=== PATIENT | male | born 1950 | race Caucasian/White ===

== ENCOUNTER 2025-04-23 11:06 | Emergency (ER) | payer OTHER, SELFPAY ==
[2025-04-23] VITALS (7 sets, daily range): BP systolic 113–151; BP diastolic 62–81; BMI 23.8
--- NOTE | 2025-04-23 11:36 | ED.GENMED ---
History of Present Illness
General
Chief Complaint: Chest Pain
Source: patient
Exam Limitations: none
Time Seen by Provider: 04/23/25 11:35
History of Present Illness
History of Present Illness:
74yoM with a history of pericarditis, hypertension, hyperlipidemia presenting for evaluation of chest pain. Patient woke up this morning around 8:30am and felt 'not right' in his chest. He reports a pressure throughout his chest that worsens with
deep breathing. Pain has been constant and feels similar to when he's been diagnosed with pericarditis in the past. He denies any cough, fever, shortness of breath, dizziness, diaphoresis, nausea, vomiting, leg swelling. He is a referee for
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 He denies any angina with exercise. He was last seen in the ED in 2019 for pleurisy.
Past History
Past History
ED Past Medical History: HTN and Hypercholesterolemia
Social History
Tobacco: Non-smoker
Alcohol: None
Phy Exam
General Physical Exam
General Presentation: well appearing and no apparent distress
General Skin: warm and dry
General Habitus: normal
General Mental: alert
ENT Exam
ENT Exam: normocephalic
Cardiovascular Exam
Cardiovascular Exam: regular rate/rhythm, no edema, no murmur and normal peripheral pulses (2+ radial and PT pulses bilaterally)
Pulmonary Exam
Pulmonary Exam: lungs clear, no respiratory distress, no rales, no crackles, no rhonchi and no wheezing
Neurological Exam
Neurological Exam: alert
Bertrand Coma Scale
Eye Opening: Spontaneous
Verbal Response: Oriented
Motor Response: Obeys Commands
GCS Total Score: 15
Skin Exam
Skin Exam: normal color and warm/dry
Psychiatric Exam
Psychiatric Exam: normal mood/affect
Scores
Heart Score for Chest Pain Patients
STEMI patient?: No
History: Moderately Suspicious
ECG: Nonspecific Repolarization
Age: >/= 65 years
Risk Factors: 1 or 2 Risk Factors
Troponin: </= Normal Limit
Heart Score for Chest Pain Patients: 5
Heart Score Risk: 20.3% MACE over next 6 weeks
Course
Orders/Labs/Results
Orders:
Orders
04/23/25
Electrocardiogram (*1) Stat
Comment: DONE
04/23/25 11:07
EKG [Electrocardiogram (*1)] Urgent
Reason for Study: Chest Pain
EKG- Treatment ONCE
04/23/25 11:50
Cardiac Monitoring- Treatment ONCE
04/23/25 12:21
CRP [C-Reactive Protein] Urgent
Complete Blood Count/With Diff Urgent
Comprehensive Metabolic Panel Urgent
D-Dimer Urgent
ESR [Erythrocyte Sed Rate] Urgent
Troponin I Urgent
04/23/25 13:06
CT Chest PE Study Urgent
Comment:
Reason For Exam: chest pain, elevated D-dimer
04/23/25 13:07
EKG- Treatment ONCE
04/23/25 15:12
Troponin I Urgent
04/23/25 15:20
Electrocardiogram (*1) Urgent
Reason for Study: Chest Pain
Abnormal Lab Results
04/23/25
12:21
RBC 4.43 L 10^6/uL
(4.70-6.10)
MCV 98.2 H fL
(80.0-94.0)
MCH 32.5 H pg
(27.0-31.0)
Absolute Neuts (auto) 8.1 H 10^3/uL
(1.4-6.5)
Absolute Lymphs (auto) 0.6 L 10^3/uL
(1.2-3.4)
Absolute Monos (auto) 0.8 H 10^3/uL
(0.1-0.6)
Neutrophils % 83.8 H %
(42.2-75.2)
Lymphocytes % 6.3 L %
(20.5-51.1)
D-Dimer 0.76 H ug/mlFEU
(0.00-0.50)
Carbon Dioxide 31 H mmol/L
(22-30)
Glucose 112 H mg/dl
(70-99)
04/23/25 12:21
04/23/25 12:21
Vital Signs
Initial and Last Documented VS:
Initial Vital Signs
Temp Pulse Resp BP Pulse Ox
98.4 F 104 18 151/81 96
04/23/25 11:08 04/23/25 11:08 04/23/25 11:08 04/23/25 11:08 04/23/25 11:08
Last Documented Vital Signs
Temp Pulse Resp BP Pulse Ox
98.4 F 87 13 122/65 97
04/23/25 11:08 04/23/25 15:30 04/23/25 15:30 04/23/25 15:00 04/23/25 16:11
MDM/Problems Addressed
Differential Diagnosis Includes:
74yoM here with chest pain that began this morning. Pleuritic. Feels similar to prior bout of pericarditis. Patient well appearing in no distress. VSS. Exam reassuring. Differential diagnosis includes but is not limited to: pericarditis, pleurisy,
pneumonia, PE, ACS
Initial ED plan: Triage EKG shows NSR without ischemic changes. Will check cardiac labs, D-dimer, ESR/CRP and CT vs. CXR depending on D-dimer results.
*Pulse Oximetry
SaO2: 96
Patient hypoxic: no
*EKG
Interpreted by ED Provider?: Yes
EKG Intrepretation Date: 04/23/25
Heart Rate: 91
Rate: normal
Rhythm: sinus and PAC's
Denn[place]: normal axis
Interval: normal interval
QRS Pattern: normal QRS
Ischemia: no ischemia
*Critical Care Note
Total Time (30-74mins, 75-104mins- exclusive of procedures): Not Applicable
Update Note
Update Note:
Troponin and inflammatory markers normal. D-dimer elevated and CTA chest subsequently ordered. Imaging negative for pulmonary embolism, aortic dissection, and pericardial effusion. Coronary artery calcifications present. There is also a R shoulder
effusion (this was d/w patient. He has R shoulder pain x several weeks and previously underwent PT for shoulder issues). Repeat troponin/EKG performed at 3 hours and troponin remains undetectable. No indication for hospitalization. No objective
evidence of pericarditis although this feels similar to his prior episodes so will provide 2 week prescription for colchicine. Will have patient f/u with chest pain hotline. Strict ED return precautions reviewed and patient discharged in stable
condition.
ED Attending Note
-
Portions of this chart may have been created with voice recognition software.� Occasional wrong word or��sound alike� substitutions may have occurred due to the inherent limitations of voice recognition software.
Discharge Plan
Departure
Patient Disposition: Home (Routine Discharge)
Date of Disposition: 04/23/25
Time of Disposition: 15:54
Patient with high blood pressure during this ER visit?: No
Discharge Problem:
Chest pain, Coronary artery calcification seen on CT scan
Instructions: Chest Pain DCA Follow Up
Prescriptions:
New
colchicine 0.6 mg tablet
0.6 mg PO BID Qty: 28 0RF
No Action
losartan 50 MG tablet
50 mg PO DAILY
atorvastatin 40 MG tablet
40 mg PO DAILY
multivitamin [Daily Multiple] 1 EACH tablet
1 ea PO DAILY
ezetimibe 10 MG tablet
10 mg PO DAILY
Referrals:
Aren Castillo DO [Active, Cardiology]
Nahum Pollock DO [Family Provider, Family Practice]
Activity Restrictions/Additional Instructions:
Take colchicine as prescribed.
The cardiology office should call you to schedule a follow-up appointment. Please call the office if you do not hear from them in the next 24 hours.
Return to the ER immediately with any new or worsening symptoms.
Interventions
Interventions:
*Risk Screen - Suicide Last Done: 04/23/25 11:11
*General Assessment Last Done: 04/23/25 14:51
*Neglect/Abuse Screening Last Done: 04/23/25 16:23
*ED- Fall Risk Assessment Last Done: 04/23/25 14:51
*ED COVID-19 Vaccine History Last Done: 04/23/25 14:51
*ED Influenza Vaccine History Last Done: 04/23/25 14:51
*Nursing Disposition Last Done: 04/23/25 16:30
ED- Cardiac Assessment Last Done: 04/23/25 15:00
Discharge Date and Time
Discharge Date/Time: 04/23/25 16:55
Print Language: [email or web address]
[2025-04-23 12:40] LABS: Hematocrit 43.5 % (39.0-52.0); Hemoglobin 14.4 g/dL (13.0-18.0); Mean Corp Hgb Conc. 33.1 g/dL (33.0-37.0); Mean Corpuscular Volume 98.2 fL (80.0-94.0); Nucleated Red Blood Cells % 0 % (-); Platelet Count 253 10^3/uL (130-400); Red Cell Dist. Width 13.4 % (11.5-14.5)
[2025-04-23 12:55] LABS: ALT (SGPT) 31 U/L (0-50); AST (SGOT) 29 U/L (17-59); Albumin 4.4 g/dl (3.5-5.0); Alkaline Phosphatase 70 U/L (38-126); Blood Urea Nitrogen 16 mg/dl (9-20); Calcium 9.9 mg/dl (8.4-10.2); Carbon Dioxide 31 mmol/L (22-30); Chloride 101 mmol/L (98-107); Estimated Creatinine Clearance 81 ml/min; Glucose 112 mg/dl (70-99); Potassium 4.6 mmol/L (3.5-5.1); Sodium 136 mmol/L (135-145); Total Protein 7.3 g/dl (6.3-8.2); eGFR > 60.00
[2025-04-23 12:58] LABS: C-Reactive Protein < 5.00 mg/L (0.0-10.00)
[2025-04-23 12:59] LABS: D-Dimer 0.76 ug/mlFEU (0.00-0.50)
[2025-04-23 13:03] LABS: Troponin I < 0.012 ng/ml
[2025-04-23 15:46] LABS: Troponin I < 0.012 ng/ml
== END 2025-04-23 16:30 | disposition home or self-care (01) ==
LOC: EMR 11:06
PROVIDERS: Physician Assistant; EMERGENCY PHYSICIAN Student in an Organized Health Care Education/Training Program; FAMILY PHYSICIAN Family Medicine
DX: R07.9 Chest pain, unspecified (principal); I25.10 Atherosclerotic heart disease of native coronary artery without angina pectoris; I10 Essential (primary) hypertension; E78.00 Pure hypercholesterolemia, unspecified; R79.1 Abnormal coagulation profile
CPT/HCPCS: 99284; 71275; 80053; 84484; 85025; 85379; 85652; 86140; 93005; Q9967

== ENCOUNTER → 2025-05-09 12:43 | Outpatient (REF) | payer OTHER, SELFPAY | LOC: HWRCS 12:43 | PROVIDERS: ATTENDING PHYSICIAN Internal Medicine Cardiovascular Disease; FAMILY PHYSICIAN Family Medicine | DX: I30.9 Acute pericarditis, unspecified (principal) | CPT/HCPCS: 93306 ==